=== PATIENT | male | born 1955 | race Caucasian/White ===

== ENCOUNTER → 2017-03-17 | Outpatient (CLI) | payer BC | LOC: FIMAGING 15:03 | DX: M25.551 Pain in right hip (principal); M25.552 Pain in left hip; M54.5 Low back pain; F11.20 Opioid dependence, uncomplicated; Z96.643 Presence of artificial hip joint, bilateral; Z79.891 Long term (current) use of opiate analgesic ==

== ENCOUNTER → 2017-05-18 | Outpatient (CLI) | payer BC | LOC: FIMAGING 08:21 | PROVIDERS: ATTEND Internal Medicine | DX: R05 Cough (principal) ==

== ENCOUNTER → 2017-05-19 | Outpatient (CLI) | payer BC | LOC: BMCIMAGING 09:36 | PROVIDERS: ATTEND Internal Medicine | DX: Z13.820 Encounter for screening for osteoporosis (principal); M85.80 Other specified disorders of bone density and structure, unspecified site; Z96.641 Presence of right artificial hip joint; Z96.642 Presence of left artificial hip joint ==

== ENCOUNTER → 2018-04-29 | Outpatient (CLI) | payer BC | LOC: FIMAGING 07:43 | PROVIDERS: ATTEND Internal Medicine | DX: M51.16 Intervertebral disc disorders with radiculopathy, lumbar region (principal); M51.34 Other intervertebral disc degeneration, thoracic region; M46.96 Unspecified inflammatory spondylopathy, lumbar region; M46.97 Unspecified inflammatory spondylopathy, lumbosacral region; M48.061 Spinal stenosis, lumbar region without neurogenic claudication; M51.44 Schmorl's nodes, thoracic region ==

== ENCOUNTER → 2018-05-05 | Outpatient (CLI) | payer BC | LOC: FIMAGING 12:50 | PROVIDERS: ATTEND Internal Medicine | DX: N28.1 Cyst of kidney, acquired (principal); M25.551 Pain in right hip ==

== ENCOUNTER → 2018-08-03 | Outpatient (CLI) | payer BC | LOC: CIMAGING 07:59 | PROVIDERS: ATTEND Internal Medicine | DX: R19.09 Other intra-abdominal and pelvic swelling, mass and lump (principal) | CPT/HCPCS: 74176-PO ==

== ENCOUNTER → 2018-08-07 | Outpatient (CLI) | payer BC | LOC: FIMAGING 07:03 | PROVIDERS: ATTEND Internal Medicine | DX: R19.04 Left lower quadrant abdominal swelling, mass and lump (principal) ==